=== PATIENT | male | born 1995 | race Caucasian/White ===

== ENCOUNTER 2024-01-17 16:41 | Emergency (ER) | payer SELFPAY ==
[~2024-01-17] VITALS: Ht 167.6 cm; Wt 83.5 kg
[2024-01-17 16:52] VITALS: BP 141/77; PULSE 75; RESP 16; TEMP 98.6; O2SAT 99
[2024-01-17] MEDS ORDERED: cefTRIAXone 2,000 MG VIAL ONE (17:57)
[2024-01-17] MEDS: DEXAMETHASONE 10 MG/ML VIAL IVP ONE (18:18)
[2024-01-17] MEDS: cefTRIAXone 2,000 MG in DEXTROSE 5% 100 ML IV ONE (18:19)
[2024-01-17] MEDS: KETOROLAC 30 MG/ML VIAL IVP ONE (18:21)
[2024-01-17] MEDS ORDERED: AMOX1TAB8 PO (18:52)
[2024-01-17] MEDS ORDERED: IBUP-2213 PO (18:52)
[2024-01-17] MEDS ORDERED: BENZ-300 PO (18:52)
== END 2024-01-17 20:26 | disposition home or self-care (01) ==
LOC: MED 16:41
DX: D68.1 Hereditary factor XI deficiency (principal); J02.0 Streptococcal pharyngitis; Z79.899 Other long term (current) drug therapy
CPT/HCPCS: 86308; 87081; 96365; 96375; 99284; J0696; J1100; J1885